=== PATIENT | male | born 1970 | race Caucasian/White ===

== ENCOUNTER 2018-01-23 12:25 | Day surgery (SDC) | payer OTHER, SELFPAY ==
[2018-01-23] VITALS (7 sets, daily range): BP systolic 125–147; BP diastolic 52–89; PULSE 60–78; RESP 10–19; TEMP 36.1–37; O2SAT 95–100; BMI 33.3
[2018-01-23] MEDS: LACTATED RINGERS 1,000 ML 100 ML IV (13:00)
--- NOTE | 2018-01-23 14:21 | PM.PREOP ---
Pre-operative Note Interval Note Pre-op Check: History & Physical Reviewed by Physician
[2018-01-23] MEDS: CEFAZOLIN 2 GM/100 ML FROZ.PIGGY IV (14:22)
[2018-01-23] MEDS: LACTATED RINGERS 1,000 ML 42 ML IV (14:45)
[2018-01-23] MEDS: LIDOCAINE 1% W/EPI INJ 20 ML INJ (15:06)
[2018-01-23] MEDS: BUPIVACAINE 0.5% (PF) 30 ML VIAL INJ (15:06)
[2018-01-23] MEDS: SODIUM CHLORIDE IRRIG SOLUTION 250 ML, CEFAZOLIN VIAL 1 GM IRR (15:07)
--- NOTE | 2018-01-23 15:37 | P.OP_ITS ---
Operative Date/Time/Diagnoses - Date of procedure: 01/23/18 Time of procedure: 15:35 Pre-op diagnosis: Right Inguinal Hernia Umbilical Hernia Post-op diagnosis: same Procedure & Clinicians Procedure: Right inguinal hernia repair and umbilical hernia repair Same procedure as scheduled: Yes Indications: Painful and enlarging hernia Surgeon: Megan Terrazas Click Yes if Unassisted: Yes Anesthesia Type: General (Ahsaei) and Local Operative Notes Findings: 1. Moderate size indirect right inguinal hernia. Hernia sac contained preperitoneal fat 2. 1 cm umbilical defect containing preperitoneal fat Closure Type: primary Specimen(s): none sent Implants & Drains: 1. Large Pro Loop mesh implant in the right inguinal hernia 2. 4 cm x 4 cm C cur mesh implant in the umbilical hernia Estimated Blood Loss (mL): 10 Procedure in detail: After obtaining informed consent, the patient was brought to the operating room and placed in the supine position on the operating table. Following successful induction of general endotracheal anesthesia, appropriate padding of all bony prominences, and placement of appropriate monitors, the abdomen was prepped and draped in the standard surgical fashion. A timeout was held per [facility] protocol. We began by infiltrating a mixture of local anesthetics directly over the hernia defect in the fascia around the defect. This was done to create a field block. An incision was then created directly over the hernia defect and the palpable sac. This was carried carefully down through the skin and subcutaneous tissue until the sac was easily visible and palpable. The edges of the hernia were carefully defined. It was determined to be approximately [] cm in greatest dimension. The contents of the hernia sac consisted of []. We elected to repair the defect with a [] cm portion of C-Qur mesh. This was dipped in Ancef-containing solution and deployed into the defect per computing services director's directions. Careful attention was paid to the position of the mesh and to be sure that it was flattened in the space up against the abdominal wall. It was sewn into place with the securing tags using Vicryl suture. The wound was checked for hemostasis and irrigated with warm saline solution. When we were satisfied that all was clean and dry, the incision was closed in 2 layers with Vicryl and Monocryl suture. All sponge, needle, and instrument counts were correct at the conclusion of the case. The patient was allowed to awaken from anesthesia without difficulty and taken to the post-anesthesia care unit in good condition.
--- NOTE | 2018-01-23 15:37 | SUR.OPER ---
Abdomen shaved in pre-op, skin was red and irritated/slightly abraded. Dr. Terrazas notified to look at it before any further prep was done. Right groin area shaved in OR at her request. No redness noted after groin shaving.
[2018-01-23] MEDS: fentaNYL 100 MCG/2 ML INJ 50 MCG IV (15:53)
[2018-01-23] MEDS: OXYCODONE/ACETAMINOPHEN 5/325 TABLET 1 TAB PO (15:55)
--- NOTE | 2018-01-23 15:59 | SUR.PHASEI ---
taking snack and fluids without nausea, pain medication provided per orders with good pain control.
== END 2018-01-23 16:42 | disposition home or self-care (01) ==
PROVIDERS: Family Provider Family Medicine; PCP Family Medicine; Visit Provider Surgery
PROC: (CPT 49505; principal; 2018-01-23 14:30)
PROC: (CPT 49505; 2018-01-23 14:30)
DX: K40.90 Unilateral inguinal hernia, without obstruction or gangrene, not specified as recurrent (principal); K42.9 Umbilical hernia without obstruction or gangrene; G89.4 Chronic pain syndrome
CPT/HCPCS: 49505; 49585; C1781; J0690; J1100; J2405; J2704; J3010

== ENCOUNTER → 2021-06-10 13:35 | Outpatient (CLI) | payer OTHER, SELFPAY ==
--- NOTE | 2021-06-10 | DI.MRI.S_ITS ---
PROCEDURE: MR LUMBAR SPINE WO CON INDICATIONS: Radiculopathy, lumbar region TECHNIQUE: Noncontrast sagittal T1 spin echo and T2 fast echo, sagittal STIR, axial T1 and T2 fast spin echo through the lumbar spine. In cases with scoliosis, additional coronal T2 fast spin echo may be performed. COMPARISON: [facility], CR, XR LUMBAR SPINE 2 OR 3 VIEWS, 09/11/2019, 9:18. FINDINGS: Image quality: Excellent. Alignment and Curvature: 5 lumbar type vertebral bodies are present by plain film. There is loss of normal lumbar lordosis. There is mild grade 1 retrolisthesis of L1 on L2, L2 on L3, L3 on L4, and L4 on L5. Bone Marrow: Marrow is of normal overall signal. No acute vertebral body compression fractures. Minimal reactive signal within the endplates adjacent to the L2-L3, L3-L4, and L4-L5 intervertebral discs. Spinal Cord: Conus medullaris terminates at the mid L1 level. Visualized cord demonstrates normal signal and size. Paraspinous Soft Tissues: No paravertebral masses. T12-L1: Normal appearance. L1-L2: Normal appearance. L2-L3: Mild disc height loss and desiccation. Mild diffuse disc bulge with small superimposed broad-based right posterolateral protrusion. Mild facet and ligamentum flavum hypertrophy. Mild epidural lipomatosis. Mild canal stenosis. Moderate right greater than left foraminal stenosis. L3-L4: Mild disc height loss and desiccation. Mild diffuse disc bulge. Mild facet and ligamentum flavum hypertrophy. Mild epidural lipomatosis. Mild canal stenosis. Moderate bilateral foraminal stenosis. L4-L5: Moderate disc height loss and desiccation. Mild diffuse disc bulge. Mild facet and ligamentum flavum hypertrophy. Mild epidural lipomatosis. Mild canal stenosis. Moderate to severe left and moderate right foraminal stenosis. Left L4 nerve root compression. L5-S1: Mild disc height loss and desiccation. Mild diffuse disc bulge. Mild bilateral facet hypertrophy. Mild canal stenosis. Moderate to severe bilateral foraminal stenosis with mild L5 nerve root compression bilaterally. IMPRESSION: 1. Multilevel degenerative disc and facet disease, as well as ligamentum flavum hypertrophy and epidural lipomatosis. 2. Mild multilevel canal stenoses. 3. Multilevel foraminal stenoses, worst at L4-L5 and L5-S1 where there is associated intraforaminal nerve root compression. Recommend correlation with clinical symptoms to ascertain relevance of these findings. Dictated by: Hali Lo M.D. on 06/10/2021 at 15:24 Approved by: Hali Lo M.D. on 06/10/2021 at 15:27
== END ==
PROVIDERS: Family Provider Family Medicine; PCP Family Medicine; Referring Provider Family Medicine; Visit Provider Family Medicine
DX: M51.16 Intervertebral disc disorders with radiculopathy, lumbar region (principal); M51.17 Intervertebral disc disorders with radiculopathy, lumbosacral region; M48.061 Spinal stenosis, lumbar region without neurogenic claudication; M48.07 Spinal stenosis, lumbosacral region; E88.2 Lipomatosis, not elsewhere classified
CPT/HCPCS: 72148

== ENCOUNTER → 2021-08-02 13:54 | Outpatient (CLI) | payer OTHER, SELFPAY ==
--- NOTE | 2021-08-02 | DI.MRI.S_ITS ---
PROCEDURE: MR CERVICAL SPINE WO CON INDICATIONS: Other cervical disc displacement, unspecified cerv TECHNIQUE: Noncontrast sagittal T1 spin echo and T2 fast spin echo, sagittal STIR, foraminal oblique sagittal T2 fast spin echo, and axial gradient echo or T2 fast spin echo through the cervical spine. COMPARISON: None. FINDINGS: There are postsurgical changes of C5-C6 and C6-C7 ACDF with interbody devices. There appears to be mature osseous fusion across the intervertebral disc spaces at both levels. No signal abnormality surrounding the hardware. Normal cervical spine vertebral body height and alignment. No suspicious focal marrow signal abnormality or marrow edema. Normal morphology and signal intensity of the cervical cord. There is no syrinx. Prevertebral and paraspinous soft tissues demonstrate no acute abnormality. Susceptibility artifact in the right anterior cervical soft tissues is presumably related to ACDF approach surgical clips. C2-C3: No spinal canal or neural foraminal stenosis. C3-C4: No spinal canal stenosis. Facet and uncovertebral hypertrophy combine to produce mild bilateral neural foraminal narrowing.. C4-C5: Posterior disc-osteophyte complex flattens and indents the ventral thecal sac without mass effect upon the cord. Facet and uncovertebral hypertrophy produce moderate bilateral neural foraminal stenosis. C5-C6: Posterior disc osteophyte complex flattens the ventral thecal sac without mass effect upon the cord. Facet and uncovertebral hypertrophy produce moderate bilateral neural foraminal stenosis. C6-C7: Posterior disc osteophyte complex flattens the ventral thecal sac without mass effect upon the cord. Facet and uncovertebral hypertrophy combine to produce moderate bilateral neural foraminal stenosis. C7-T1: Posterior disc osteophyte complex without spinal canal stenosis. No neural foraminal narrowing. IMPRESSION: Postsurgical changes of C5-C6 and C6-C7 ACDF. Moderate neural foraminal narrowing bilaterally at C4-C5, C5-C6, and C6-C7, due to a combination of facet and uncovertebral hypertrophy at each level. No spinal canal stenosis. Dictated by: Juan José Bueno M.D. on 08/02/2021 at 15:10 Approved by: Juan José Bueno M.D. on 08/02/2021 at 15:40
== END ==
PROVIDERS: Family Provider Family Medicine; PCP Family Medicine; Referring Provider Family Medicine; Visit Provider Family Medicine
DX: M50.20 Other cervical disc displacement, unspecified cervical region (principal); Z98.1 Arthrodesis status; M48.02 Spinal stenosis, cervical region
CPT/HCPCS: 72141

== ENCOUNTER → 2023-12-20 15:06 | Outpatient (CLI) | payer OTHER, SELFPAY ==
--- NOTE | 2023-12-20 15:08 | DI.MRI.S_ITS ---
PROCEDURE: MR HEAD/BRAIN WO/W CON INDICATIONS: Radiculopathy, cervical region; numbness of tongue TECHNIQUE: Noncontrast axial T1 spin echo, axial T2 fast spin echo, sagittal and axial FLAIR, axial gradient echo, axial diffusion and ADC through the brain. After the administration of contrast, axial and coronal and sagittal T1 spin echo with fat saturation through the brain, coronal thin-slice T1 spin echo with fat saturation through the skull base. COMPARISON: [facility], CT, HEAD WITHOUT CONTRAST, 03/25/2014, 13:39. [facility], MR, MR CERVICAL SPINE WO CON, 12/20/2023, 15:37. FINDINGS: Image quality: This examination is limited by involuntary motion artifact. Cranial nerves: In this patient with this given history, scrutiny is given to the cranial nerves at the skull base. On these images, no masses or abnormal enhancement can be seen. CSF spaces: Ventricles are normal in size and shape. Basal cisterns are patent. No extra-axial fluid collections. Brain: No acute intracranial bleeds or mass effects. [place]-white matter interface is intact. No abnormal intracranial enhancement. Diffusion weighted images demonstrate no acute ischemic insults. Brainstem appears normal. Normal intravascular flow voids are present. Skull and face: Calvarial marrow signal is normal. Orbits appear normal. Sinuses: Sinuses and mastoids appear clear. IMPRESSION: No masses or abnormal enhancement can be seen to explain the patient's presenting symptoms. Dictated by: Tejinder Wilson M.D. on 12/20/2023 at 15:36 Approved by: Tejinder Wilson M.D. on 12/20/2023 at 15:39
--- NOTE | 2023-12-20 15:08 | DI.MRI.S_ITS ---
PROCEDURE: MR CERVICAL SPINE WO CON INDICATIONS: Radiculopathy, cervical region;numbness of tongue TECHNIQUE: Noncontrast sagittal T1 spin echo and T2 fast spin echo, sagittal STIR, foraminal oblique sagittal T2 fast spin echo, and axial gradient echo or T2 fast spin echo through the cervical spine. COMPARISON: [facility], MR, MR CERVICAL SPINE WO CON, 08/02/2021, 14:17. FINDINGS: Image quality: Excellent Anterior fusion instrumentation with interbody spacer at C5-C7. Alignment of cervical spine is grossly anatomic. Vertebral body height of the cervical spine is well maintained. Large anterior disc osteophyte complex at C3-4. No marrow edema of the cervical spine. No suspicious marrow replacing lesion in the cervical spine. Multilevel disc desiccation. Minimal disc bulge of cervical spine. Her signal: Unremarkable. Axial levels: C2-3: Unremarkable C3-4: Unremarkable C4-5: Moderate, moderate left facet arthropathy. No central canal stenosis. Mild right neural foraminal stenosis. Moderate left neural foraminal stenosis. C5-6: Mild left facet arthropathy. Mild left neural foraminal stenosis. C6-7: Unremarkable C7-T1: Mild bilateral facet arthropathy. No stenosis. Other soft tissue findings: Unremarkable IMPRESSION: 1. Anterior fusions instrumentation with interbody spacer at C5-C7. 2. Multilevel degenerative changes of the cervical spine, most pronounced at C4-5, where there is mild right and moderate left neural foraminal stenosis. Overall , appearance is grossly unchanged from prior exam. Dictated by: Deidre Villa M.D. on 12/20/2023 at 16:44 Approved by: Deidre Villa M.D. on 12/20/2023 at 16:52
== END ==
PROVIDERS: Family Provider Family Medicine; PCP Family Medicine; Referring Provider Family Medicine; Visit Provider Family Medicine
DX: M47.22 Other spondylosis with radiculopathy, cervical region (principal); M47.23 Other spondylosis with radiculopathy, cervicothoracic region; K14.8 Other diseases of tongue; Z98.1 Arthrodesis status; M48.02 Spinal stenosis, cervical region
CPT/HCPCS: 70553; 72141; A9579